=== PATIENT | female | born 1980 | race Caucasian/White ===

== ENCOUNTER → 2016-05-16 | Outpatient (CLI) | payer OTHER ==
--- NOTE | 2016-05-17 09:24 | REP ---
MRI left knee without contrast: History: Left knee pain after skiing injury. Limited range of motion. Injury 3 weeks ago. Technique: Sagittal, axial, and coronal imaging planes are utilized for T1, proton density and T2-weighted scans obtained in the usual fashion with and without fat saturation. MRI findings: There is an area of low T1, high T2 marrow edema in the lateral tibial plateau. This is most pronounced posteriorly. There is a linear subcortical fracture plane centrally located within this edematous zone consistent with an incomplete fracture. Cortical and medullary bone signal intensity are otherwise normal. No depression or collapse of the articular surface of the tibia is seen. There is a tiny bone island in the anteromedial tibia. A small to moderate joint effusion is visible. There is a small Plasencia's cyst. Medial and lateral patellar retinacular structures are intact. The patellar and quadriceps tendons are unremarkable. There is heterogeneous signal intensity and disorganization of fibers of the proximal anterior cruciate ligament consistent with a high grade partial anterior cruciate ligament tear. Posterior cruciate ligament has a normal appearance. There is no evidence of medial or lateral collateral ligament disruption. No medial or lateral meniscal tear is seen. No articular cartilage lesion is appreciated. Impression: Joint effusion and small Plasencia's cyst. Subcortical incomplete fracture posterolateral tibial plateau region. High grade partial tear of the anterior cruciate ligament. Signed by Devang Mujica MD 05/17/2016 01:11 P
== END ==
LOC: M RAD 13:14
PROVIDERS: ATTEND Family Medicine
DX: M71.22 Synovial cyst of popliteal space [Baker], left knee (principal); S82.142A Displaced bicondylar fracture of left tibia, initial encounter for closed fracture; S83.512A Sprain of anterior cruciate ligament of left knee, initial encounter; X58.XXXA Exposure to other specified factors, initial encounter; Y92.89 Other specified places as the place of occurrence of the external cause; Y93.89 Activity, other specified; Y99.8 Other external cause status